=== PATIENT | male | born 1995 | race Caucasian/White ===

== ENCOUNTER 2019-01-13 22:44 | Emergency (ER) | payer MEDICAID ==
[~2019-01-13] VITALS: Ht 162.6 cm; Wt 58.5 kg
[~2019-01-13 22:44] MED LIST: OXYACE5T PO
== END 2019-01-14 00:01 | disposition home or self-care (01) ==
LOC: ER 22:44
DX: S01.81XA Laceration without foreign body of other part of head, initial encounter (principal); W22.8XXA Striking against or struck by other objects, initial encounter; F17.200 Nicotine dependence, unspecified, uncomplicated
CPT/HCPCS: 12011; 99282-25

== ENCOUNTER 2022-07-16 05:38 | Day surgery (SDC) | payer OTHER ==
[~2022-07-16] VITALS: Ht 160 cm; Wt 67.6 kg
--- NOTE | 2022-07-16 06:43 | NUR ---
History, Chart, Medications and Allergies reviewed before start of procedure. Patient confirms NPO status and agrees with scheduled surgery. Patient States Post-Procedure ride home has been arranged. PT BELONGINGS PLACED UNDERNEATH BED FOR SAFEKEEPING.
--- NOTE | 2022-07-16 06:44 | NUR ---
PATIENT SHAVED GROIN HAIR AT HOME. THIS RN COMPLETED CLIP PREP BY CLIPPING GROIN HAIR SHORTER.
--- NOTE | 2022-07-16 10:41 | NUR ---
Patient up to Ambulate independently. Gait steady. Discharge instructions reviewed with patient. Patient verbalizes understanding. Copy given to patient to take home. Patient States Post-Procedure ride home has been arranged. Discharged via wheelchair to private car for ride home. SITES WNL. PT HAS SCRIPT IN DISCHARGE PACKET. PT GIVEN ICE BAGS TO USE.
== END 2022-07-16 10:41 | disposition home or self-care (01) ==
LOC: ORSCMMR 05:38 → ORD 07:30 → ORSCMMR 07:30
PROVIDERS: Surgery
PROC: 8E0W4CZ Robotic Assisted Procedure of Trunk Region, Percutaneous Endoscopic Approach (ICD-10-PCS; principal; 2022-07-16 07:30)
PROC: 0YU54JZ Supplement Right Inguinal Region with Synthetic Substitute, Percutaneous Endoscopic Approach (ICD-10-PCS; principal; 2022-07-16 07:30)
DX: K40.90 Unilateral inguinal hernia, without obstruction or gangrene, not specified as recurrent (principal); Z87.891 Personal history of nicotine dependence
CPT/HCPCS: 49650; S2900; C1781; J0690; J1100; J1885; J2250; J2405; J2704; J2795; J3010; J7120

== ENCOUNTER 2025-04-14 15:07 | Emergency (ER) | payer OTHER ==
[~2025-04-14] VITALS: Ht 162.6 cm; Wt 72.6 kg
[2025-04-14 15:22] VITALS: BP 130/71
== END 2025-04-14 17:59 | disposition home or self-care (01) ==
LOC: ER 15:07
DX: S82.54XA Nondisplaced fracture of medial malleolus of right tibia, initial encounter for closed fracture (principal); V28.49XA Other motorcycle driver injured in noncollision transport accident in traffic accident, initial encounter; F17.200 Nicotine dependence, unspecified, uncomplicated
CPT/HCPCS: 73590; 73610